=== PATIENT | male | born 1985 | race Caucasian/White ===

== ENCOUNTER 2021-01-28 06:45 | Day surgery (SDC) | payer OTHER, SELFPAY ==
[2021-01-22 09:50] VITALS: BMI 24.7
--- NOTE | 2021-01-27 09:37 | HO.ANESPROP2 ---
Documented by User: Kaitlyn Ghotra 01/27/21 09:37 HPI - Anesthesia Eval Consult details Narrative: 35yo M for Upper Endoscopy [facility], LAT[facility] Past Medical History Medical History Anxiety and depression Hx of nausea and vomiting Surgical History Surgical History History of esophagogastroduodenoscopy (EGD) Social History Social History Advance Directives: No Advance Directives Information Provided: No Advance Directives on File: No Meds Allergies Allergy/AdvReac Type Severity Reaction Status Date / Time No Known Allergies Allergy Mild NONE Verified 01/28/21 07:05 Home Medications Medication Instructions Recorded Confirmed Last Taken Type No Known Home Meds 01/22/21 01/22/21 Unknown History Exam Exam Date and Time: January 27, 2021 0937 Height,Weight and Vital Signs: Height 5 ft 10 in Weight 78.018 kg Assessment and Plan Assessment Anesthesia Assessment: Chart Reviewed Documented by User: Nidia Arreaga 01/28/21 07:36 [facility] Past Medical History Medical History Anxiety and depression Hx of nausea and vomiting Family History Family history of problems with anesthesia: No Surgical History Surgical History History of esophagogastroduodenoscopy (EGD) History of Problems with Anesthesia: No Social History Social History Advance Directives: No Advance Directives Information Provided: No Advance Directives on File: No Meds Allergies Allergy/AdvReac Type Severity Reaction Status Date / Time No Known Allergies Allergy Mild NONE Verified 01/28/21 07:05 Home Medications Medication Instructions Recorded Confirmed Last Taken Type No Known Home Meds 01/22/21 01/22/21 Unknown History Exam Height,Weight and Vital Signs: Vital Signs Temp Pulse Resp BP Pulse Ox 01/28/21 06:53 98 F 91 20 113/71 98 Airway Mallampati Class: II TM Dist: >3cm Neck ROM: Full Heart: RRR Lungs: CTAB Assessment and Plan Assessment Anesthesia Assessment: Anesthesia Plan Discussed and Chart Reviewed Final Anesthetic Review NPO: Yes ASA Class: II Final Preanesthetic Review: No Changes in Pt Med Stat, Meds/Allgs Chart Reviewed, Consent Obtained/Reviewed and Anes Risks/Benef Reviewed Patient Risk: Low Procedure Risk: Low Assessment/Block/Sedation in SS: Assess/Block/Sedation-SS Anesthetic Plan Anesthetic Plan: MAC: Disposition: Standard PACU
[2021-01-28 06:53] VITALS: BP 113/71; PULSE 91; RESP 20; TEMP 36.6; O2SAT 98
[2021-01-28] MEDS: Lactated Ringers 1,000 ML 100 ML IVCONT (07:03)
--- NOTE | 2021-01-28 07:59 | PM.OP ---
Brief Operative Note Date of Service: 01/28/21 Pre-op diagnosis: GERD, vomiting Post-op diagnosis: other (Small hiatal hernia, Duodenitis, GERD) Procedure: EGD with biopsies Surgeon: Jakob Delacruz Anesthesia: MAC Estimated blood loss (mL): 2.0 Pathology: other (A. Gastric antrum B. EG Junction at 39cm) Condition: stable Disposition: PACU
[2021-01-28 08:01] VITALS: BP 105/60; PULSE 78; RESP 14; TEMP 36.2; O2SAT 98
[2021-01-28 08:15] VITALS: BP 105/59; PULSE 68; RESP 16; O2SAT 97
[2021-01-28 08:30] VITALS: BP 115/67; PULSE 75; RESP 16; TEMP 36.2; O2SAT 98
--- NOTE | 2021-01-28 08:44 | OP_ITS ---
SURGEON: Jakob Delacruz MD INDICATIONS: The patient presents for evaluation of gastroesophageal reflux, nausea, and vomiting. Full consent has been obtained from him for this, including risks of bleeding and perforation. PREOPERATIVE DIAGNOSIS: POSTOPERATIVE DIAGNOSIS: PROCEDURE PERFORMED: Esophagogastroduodenoscopy with biopsies. ESTIMATED BLOOD LOSS: COMPLICATIONS: ANESTHESIA: Monitored anesthesia care. ASSISTANTS: SPECIMENS: PREOPERATIVE DIAGNOSES: Gastroesophageal reflux, nausea, and vomiting. POSTOPERATIVE DIAGNOSES: Gastroesophageal reflux, nausea, and vomiting, small hiatal hernia, duodenitis, rule out gastritis and Helicobacter pylori. DESCRIPTION OF PROCEDURE: The patient was placed in the left lateral decubitus position. The Olympus video gastroscope was passed in the posterior oropharynx and upper esophagus under direct vision. The scope was passed slowly into the distal esophagus. The gastroesophageal junction appeared at 39 cm. There was some slight erythema and irregularity consistent with reflux, but no esophagitis nor any definitive evidence of Robertson's mucosa. There was a minimal hiatal hernia. The scope was advanced to pylorus and duodenum was cannulated to the descending portion. The duodenum including the bulb was carefully inspected. There was some minimal evidence of duodenitis in the duodenal bulb with erythema, but no erosions or ulceration. The scope was withdrawn back in the stomach. The gastric antrum and body appeared normal with good peristalsis. Biopsies were obtained from the antrum. The scope was retroflexed visualizing the proximal stomach carefully, which appeared normal, without any sign of mass or ulceration. The scope was straightened out and withdrawn back into the esophagus. Biopsies were obtained at the EG junction at 39 cm. Proximal to that, the esophageal mucosa appeared normal. The scope was withdrawn from the patient. He tolerated the procedure well and was returned to the recovery area in stable condition. IMPRESSION: 1. Small hiatal hernia, gastroesophageal reflux. 2. Duodenitis. PLAN: The results of the biopsies will be checked. Given these findings and his intermittent symptoms, I shall put him on a course of omeprazole 20 mg daily. I shall give him a prescription to use Zofran on a p.r.n. basis as well. He can see me in 2 to 3 months for a followup visit. If Helicobacter pylori is present in the gastric biopsies, we would not have to necessarily have to treat that, but I would review that with him when I see him in the office depending upon his clinical symptoms. MD MARIJA Ponce/ALL / [id number] MTDChristian
== END 2021-01-28 09:03 | disposition home or self-care (01) ==
PROVIDERS: Visit Provider Internal Medicine
PROC: 0DJ08ZZ Inspection of Upper Intestinal Tract, Via Natural or Artificial Opening Endoscopic (ICD-10-PCS; CPT 43235; principal; 2021-01-28 07:30)
DX: K21.9 Gastro-esophageal reflux disease without esophagitis (principal); K29.80 Duodenitis without bleeding; K44.9 Diaphragmatic hernia without obstruction or gangrene
CPT/HCPCS: 43239; 88305; 88342; J3010